=== PATIENT | female | born 1930 | race Caucasian/White ===

== ENCOUNTER 2019-10-10 20:03 | Inpatient (IN) | payer MEDICARE, BC ==
[~2019-10-10] VITALS: Ht 152.4 cm; Wt 35.5 kg
[~2019-10-10 20:03] MED LIST: ACET325S PO; AMLO2.5T5 PO; ASPI-630 PO; ASPI325T8 PO; CLOP75TA57 PO; CRESTOR20 MG PO; DIAZ2TAB3 PO; DOCU-109 PO; IBUP200T58 PO; ISOS30TA4 PO; LACT1TAB18 PO; MAG355OR12 PO; MULT-208 PO; NITR1OIN TD; TIOT18CA IH; [UNRECOGNIZED DRUG - CODE] PO; nitropaste
[2019-10-10 21:16] LABS: BILIRUBIN,URINE NEGATIVE (NEG); CLARITY,URINE CLEAR; COLOR,URINE YELLOW; NITRITE,URINE POSITIVE (NEG); PH,URINE 7.5 (<5.0-8.0); PROTEIN,URINE NEGATIVE (NEG-TRACE); UROBILINOGEN,URINE 0.2 mg/dL (0.2 mg/dL)
--- NOTE | 2019-10-10 21:25 | PHYS DOC ---
Past Medical History Past Medical History: Cancer, High Cholesterol, Hyperthyroid, MS Past Surgical History: Pacemaker Smoking Status: Current Every Day Smoker Alcohol Use: None Drug Use: None General Adult EDM: Chief Complaint: MECHANICAL FALL HPI: HPI: Patient is a 88 year old female who presents to the emergency department without chief complaints. Patient has a granddaughter that was present in the room who states the patient fell today at 2 AM. Patient then states that she did not fall at 2 AM today, that she is fell at 8:00 PM yesterday. Patient stat es that she gets up too fast becomes dizzy and falls and has done this at least 5 times over the past 2 weeks. Patient states that she hears somebody knocking on her house that she suspects are kids playing pranks on her. The granddaughter states that [place] and this could not possibly be happening. Patient denies any fever or chills, denies any vision changes. Patient denies any recent nasal congestion sore throat cough or shortness of breath. Patient denies any pain in her chest or swelling of her extremities. Patient denies any abdominal pain nausea, vomiting, diarrhea, or constipation. Patient denies any problems urinating, also denies any burning with urination or increased urination problems. Patient denies any pain in her back or pain in her joints. Patient denies skin rashes, however states that she suffered some skin tears from her fall yesterday at 8 PM. Patient denies any headaches, focal weaknesses or sensory changes. Patient denies any increased urination or increased thirst, any swelling of her glands, depressions or anxieties. Patient denies any homicidal or suicidal ideations. Patient denies exposure to the COVID-19 virus, denies concerns of having the COVID-19 virus and does not wish to be asked to today. Review of Systems: Review of Systems: Constitutional: Denies fever or chills. Denies exposure to the COVID-19 virus. Eyes: Denies change in visual acuity. HENT: Denies nasal congestion or sore throat. Respiratory: Denies cough or shortness of breath. Cardiovascular: Denies chest pain or edema. GI: Denies abdominal pain, nausea, vomiting, bloody stools or diarrhea. : Denies dysuria. Musculoskeletal: Denies back pain or joint pain. Integument: Denies rash. Complains of skin tear to right elbow and left upper arm near the elbow and scalp. Neurologic: Denies headache, focal weakness or sensory changes. Endocrine: Denies polyuria or polydipsia. Lymphatic: Denies swollen glands. Psychiatric: Denies depression or anxiety. Heart Score: HEART Score for Chest Pain: HEART Score for Chest Pain Response (Comments) Value History Slighlty/Non-Suspicious 0 ECG Normal 0 Age > 65 2 Risk Factors No Risk Factors 0 Troponin < Normal Limit 0 Total 2 Risk Factors: Risk Factors: DM, Current or recent (<one month) smoker, HTN, HLP, family history of CAD, obesity. Risk Scores: Score 0 - 3: 2.5% MACE over next 6 weeks - Discharge Home Score 4 - 6: 20.3% MACE over next 6 weeks - Admit for Clinical Observation Score 7 - 10: 72.7% MACE over next 6 weeks - Early Invasive Strategies Allergies: Allergies: Allergies Coded Allergies Type Severity Reaction Last Updated Verified acetaminophen Allergy Mild Nausea and Vomiting 06/20/14 Yes hydrocodone Allergy Mild Nausea and Vomiting 06/20/14 Yes Physical Exam: PE: Constitutional: Well developed, well nourished, no acute distress, non-toxic appearance. HENT: Normocephalic, atraumatic, bilateral external ears normal, oropharynx moist, no oral exudates, nose normal. Eyes: PERRLA, EOMI, conjunctiva normal, no discharge. Pupils 1 mm with brisk reaction to light stimuli. Neck: Normal range of motion, no tenderness, supple, no stridor. Cardiovascular:Heart rate regular rhythm, no murmur heart sounds S1-S2, no abnormalities noted per auscultation. Lungs & Thorax: Bilateral breath sounds clear to auscultation all lung acosta. Abdomen: Bowel sounds normal all 4 quadrants auscultation, soft, no tenderness, no masses, no pulsatile masses. Skin: Warm, dry, no erythema, no rash. Skin tears to the right elbow 2 cm x 2 cm L-shaped without bleeding, just above the left elbow there is a 10 cm skin tear without bleeding linear shaped, also next to this 10 cm skin tear is a 3 cm x 3 cm L-shaped skin tear without bleeding, there is a 4 cm linear skin tear to the scalp along the right parietal/frontal area without bleeding. Back: No tenderness, no CVA tenderness. Extremities: No tenderness, no cyanosis, no clubbing, ROM intact, no edema. Neurologic: Alert and oriented X 3, normal motor function, normal sensory function, no focal deficits noted. Psychologic: Affect normal, judgement normal, mood normal. EKG: EKG: EKG performed at 2115 by ED staff. Heart rate 75 normal sinus rhythm without ectopy interpreted by Dr. Lemos no STEMI noted no ACS concerns. Radiology/Procedures: Radiology/Procedures: PROCEDURE: CT HEAD WO CONTRAST Exam: CT head INDICATION: Syncopal episode TECHNIQUE: Sequential axial images through the head were obtained without the administration of IV contrast. Comparisons: None FINDINGS: No focal parenchymal lesion or hemorrhage is identified. There is no midline shift or sulcal effacement. Patchy hypodensity in the periventricular white matter. No acute vascular territory infarction is identified. Vo-white distinction is preserved. The ventricular system is within normal limits without compression hydrocephalus. The basal cisterns are well maintained. Extra cranial soft tissue scalp contusion overlying the right frontal region. The visualized portions of the paranasal sinuses and mastoid air cells are well-pneumatized. No acute fractures. IMPRESSION: 1. Extra cranial soft tissue scalp contusion overlying the right frontal region without underlying osseous or intracranial abnormality. 2. Small vessel ischemic change, technically age indeterminate without prior imaging. Exposure: One or more of the following in the visualized dose reduction techniques were utilized for this examination: 1. Automated exposure control 2. Adjustment of the MA and/or KV according to patient size Use of iterative of reconstructive technique Electronically signed by: Gardenia Guevara MD (10/10/2019 9:38 PM) [id number] DICTATED and SIGNED BY: GARDENIA GUEVARA MD DATE: 10/10/192137 Course & Med Decision Making: Course & Med Decision Making Pertinent Labs and Imaging studies reviewed. (See chart for details) 88-year-old female was brought to the emergency department by her daughter and her granddaughter because she fell at some time last night or possibly early this morning. There was conflict thing stories between what the patient told me and what the patient told the family. Patient did have a scalp abrasion that was dried with blood that measured 4 cm linear along the right parietal frontal scalp area, along with the skin tear L-shaped to the right elbow approximately 2 cm x 2 cm without bleeding also a skin tear above the left elbow measuring 10 cm linear next to this skin tear was an additional 3 cm x 3 cm L-shaped skin tear. These were cleansed and dressed by ED nursing staff. Patient is pupils were 1 mm, concerning for possible illicit/prescription drug use, the patient's drug urinalysis was negative. Laceration repair patient's head CT was non-concerning for intracranial head injury, patient's urine was infected. Reviewed findings with patient and patient family members, it was decided that patient was related to patient's syncopal episodes and acute confusion at home and acute cystitis that the patient should come into the hospital to be admitted and treated for a urinary tract infection along with a evaluation of her syncopal episode by her [facility] extension specialist Dr. Mcmullen. [facility] telemetry unit with consultation of cardiology, IV Cipro was started along with bridge orders for continue with Cipro over the next 3 days. Dragon Disclaimer: Dragon Disclaimer: This electronic medical record was generated, in whole or in part, using a voice recognition dictation system. Departure Departure Impression: Primary Impression: UTI (urinary tract infection) Qualified Codes: N30.00 - Acute cystitis without hematuria Additional Impressions: Syncope Qualified Codes: R55 - Syncope and collapse Confusion Disposition: ADMITTED INPATIENT Admitting Physician: JESSICA (Dr. Camejo) Condition: GUARDED Referrals: TAMIKO DAVIS MD (PCP) Justicifation of Admission Dx: Justifications for Admission: Justification of Admission Dx: Yes Comments: Acute simple cystitis, syncopal episodes, confusion JIMBO MYERS REFERENCE ARCHIVIST Oct 10, 2019 21:25
[2019-10-10 21:26] LABS: BARBITURATES NEG (NEG); BENZODIAZEPINES NEG (NEG); CANNABINOIDS NEG (NEG); COCAINE NEG (NEG); METHADONE NEG (NEG); OPIATES NEG (NEG); PHENCYCLIDINE NEG (NEG)
[2019-10-10 21:28] LABS: BACTERIA,URINE MANY /HPF (0-FEW); RBC,URINE RARE /HPF (0-2); SQUAMOUS EPITHELIAL CELL,UR OCC /LPF
[2019-10-10 21:31] LABS: AMPHETAMINE/METHAMPHETAMINE NEG (NEG)
--- NOTE | 2019-10-10 21:41 | RAD ---
Exam: CT head INDICATION: Syncopal episode TECHNIQUE: Sequential axial images through the head were obtained without the administration of IV contrast. Comparisons: None FINDINGS: No focal parenchymal lesion or hemorrhage is identified. There is no midline shift or sulcal effacement. Patchy hypodensity in the periventricular white matter. No acute vascular territory infarction is identified. Vo-white distinction is preserved. The ventricular system is within normal limits without compression hydrocephalus. The basal cisterns are well maintained. Extra cranial soft tissue scalp contusion overlying the right frontal region. The visualized portions of the paranasal sinuses and mastoid air cells are well-pneumatized. No acute fractures. IMPRESSION: 1. Extra cranial soft tissue scalp contusion overlying the right frontal region without underlying osseous or intracranial abnormality. 2. Small vessel ischemic change, technically age indeterminate without prior imaging. Exposure: One or more of the following in the visualized dose reduction techniques were utilized for this examination: 1. Automated exposure control 2. Adjustment of the MA and/or KV according to patient size Use of iterative of reconstructive technique Electronically signed by: Gardenia George MD (10/10/2019 9:38 PM) [id number]
[2019-10-10 22:04] LABS: BASO % 0 % (0-3); EOS # 0.1 x10^3/uL (0.0-0.7); EOS % 2 % (0-3); HEMATOCRIT 39.2 % (36.0-47.0); HEMOGLOBIN 13.1 g/dL (12.0-15.5); LYMPH # 1.4 x10^3/uL (1.0-4.8); LYMPH % 22 % (24-48); MEAN CORPUSCULAR HEMOGLOBIN 30 pg (25-35); MEAN CORPUSCULAR HGB CONC 33 g/dL (31-37); MEAN CORPUSCULAR VOLUME 90 fL (79-100); MONO # 0.8 x10^3/uL (0.0-1.1); MONO % 13 % (0-9); NEUT # 4.1 x10^3/uL (1.8-7.7); NEUT % 63 % (31-73); PLATELET COUNT 237 x10^3/uL (140-400); RED BLOOD COUNT 4.36 x10^6/uL (3.50-5.40); RED CELL DISTRIBUTION WIDTH 16.1 % (11.5-14.5); WHITE BLOOD COUNT 6.5 x10^3/uL (4.0-11.0)
[2019-10-10 22:06] LABS: CALCIUM 9.1 mg/dL (8.5-10.1); CREATININE 1.1 mg/dL (0.6-1.0); GFR 46.9; POTASSIUM 4.1 mmol/L (3.5-5.1)
[2019-10-10 22:12] LABS: ALBUMIN 3.9 g/dL (3.4-5.0); TOTAL BILIRUBIN 0.4 mg/dL (0.2-1.0); TOTAL PROTEIN 7.7 g/dL (6.4-8.2)
[2019-10-10] MEDS ORDERED: ONDANSETRON PF 4 MG/2 ML VIAL. IV PRN (23:15)
[2019-10-10] MEDS ORDERED: CIPROFLOXACIN 200MG PREMIX 100 ML IV ONE (23:15)
[2019-10-11] VITALS (9 sets, daily range): BP systolic 72–167; BP diastolic 46–89
[2019-10-11] MEDS ORDERED: BACITRACIN TOPICAL OINT PACKET. TP ONE (00:15)
--- NOTE | 2019-10-11 02:45 | NUR ---
Pt arrived to floor via WC. Ambulated a short distance to bed with a slightly unsteady gait. ADB done - pt impatient to go to sleep. Wounds noted to bilat arms and scalp, pt requested that pictures wait to be taken until am. RN explained importance of getting pictures and pt stated would get in the morning when woke up. Will continue to monitor pt status.
--- NOTE | 2019-10-11 07:55 | EKG ---
[facility] [address] [place] [address] Test Date: 2019-10-10 Test Time: 21:15:39 Pat Name: HANNAH MÉNDEZ Department: Room: Gender: F Associate Doctor: : 1930 Requested By: JIMBO MYERS Order Number: [id number] Reading MD: Measurements Intervals [place] Rate: 75 P: 7 WY: 246 QRS: -46 QRSD: 80 T: 21 QT: 396 QTc: 445 Interpretive Statements SINUS RHYTHM PROLONGED WY INTERVAL ABNORMAL LEFT AXIS DEVIATION LEFT ANTERIOR FASCICULAR BLOCK T ABNORMALITY IN ANTERIOR LEADS ABNORMAL ECG RI6.01 No previous ECG available for comparison
[2019-10-11] MEDS ORDERED: CIPROFLOXACIN HCL 250 MG TABLET. PO SCH (09:00)
--- NOTE | 2019-10-11 10:13 | PDOC1 ---
History and Physical Date of Admission Date of Admission DATE: 10/11/19 TIME: 10:13 Identification/Chief Complaint Chief Complaint SEEN IN ER WITH FALLS , presented to the emergency department after falls Patient has a granddaughter that was present in the room who states the patient fell 10/08 at 2 AM. Patient then states she fell at 8:00 PM 10/08 Patient states that she gets up too fast becomes dizzy and falls and has done this at least 5 times over the past 2 weeks. Patient states that she hears somebody knocking on her house that she suspects are kids playing pranks on her. Patient denies any fever or chills, denies any vision changes. Patient denies any recent nasal congestion sore throat cough or shortness of breath. Patient denies any pain in her chest or swelling of her extremities. Patient denies any abdominal pain nausea, vomiting, diarrhea, or constipation. Patient denies any problems urinating, also denies any burning with urination or increased urination problems. Patient denies any pain in her back or pain in her joints. Patient denies skin rashes, however states that she suffered some skin tears from her fall yesterday at 8 PM. Patient denies any headaches, focal weaknesses or sensory changes. Patient denies any increased urination or increased thirst, Past Medical History Past Medical History Past Medical History Past Medical History Past Medical History: Cancer, High Cholesterol, Hyperthyroid, CT Past Surgical History: Pacemaker Smoking Status: Current Every Day Smoker Alcohol Use: None Drug Use: None Successful complex PCI/drug eluting stents placement to the left main coronary artery and also the left anterior descending artery FHX COPD Cardiovascular: CAD, HTN Psych: No pertinent hx Musculoskeletal: Osteoarthritis Family History Family History: High Cholestrol, Hypertension Social History Smoke: 1 pack per day ALCOHOL: none Drugs: None Current Problem List Problem List Problems Medical Problems: (1) Confusion Status: Acute Current Medications Current Medications Current Medications Ciprofloxacin/ Dextrose 100 ml @ 100 mls/hr 1X ONCE IV Last administered on 10/10/19at 23:46; Start 10/10/19 at 23:15; Stop 10/11/19 at 00:14; Status DC Ondansetron HCl (Zofran) 4 mg PRN Q8HRS PRN IV NAUSEA/VOMITING; Start 10/10/19 at 23:15; Stop 10/11/19 at 23:14 Ciprofloxacin (Cipro) 250 mg BID PO Last administered on 10/11/19at 09:16; Start 10/11/19 at 09:00; Stop 10/14/19 at 08:59 Bacitracin (Bacitracin Zinc Oint Pkt) 1 pkt 1X ONCE TP Last administered on 10/11/19at 00:32; Start 10/11/19 at 00:15; Stop 10/11/19 at 00:16; Status DC Active Scripts Active Aspirin 325 Mg Tablet 1 Tab PO DAILY Plavix (Clopidogrel Bisulfate) 75 Mg Tablet 1 Tab PO DAILY Reported Nitro-Bid (Nitroglycerin) 1 Gm Oint...g. 1 Gm TD Q8HRS Crestor (Rosuvastatin Calcium) 20 Mg Tablet 20 Mg PO HS Amlodipine Besylate 2.5 Mg Tablet 1 Tab PO DAILY Maalox Maximum Strength Susp (Mag Hydrox/Al Hydrox/Simeth) 355 Ml Oral.susp 355 Ml PO Colace (Docusate Sodium) 100 Mg Capsule 100 Mg PO PRN BID PRN Mineral Oil 473 Ml Oil 473 Ml PO Acetaminophen 325 Mg/10.15 Ml Solution 325 Mg PO PRN Q6HRS PRN Multi-Day Vitamins (Multivitamin) 1 Each Tablet 1 Tab PO DAILY Spiriva (Tiotropium Harbert) 18 Mcg Cap.w.dev 2 Inh IH DAILY Diazepam 2 Mg Tablet 2 Mg PO BID PRN Allergies Allergies: Coded Allergies: No Known Drug Allergies (Unverified , 10/11/19) ROS Review of System Constitutional: Denies fever or chills. Denies exposure to the COVID-19 virus. Eyes: Denies change in visual acuity. HENT: Denies nasal congestion or sore throat. Respiratory: Denies cough or shortness of breath. Cardiovascular: Denies chest pain or edema. GI: Denies abdominal pain, nausea, vomiting, bloody stools or diarrhea. : Denies dysuria. Musculoskeletal: Denies back pain or joint pain. Integument: notes skin tear to right elbow and left upper arm near the elbow and scalp. Neurologic: Denies headache, focal weakness or sensory changes. Endocrine: Denies polyuria or polydipsia. Lymphatic: Denies swollen glands. Psychiatric: Denies depression or anxiety. ARON loc 14 pt ros otherwise neg ALLERGY AND IMMUNOLOGY: No: Hives, Insect Bite Sensitivity, Itchy/Watery Eyes, Nasal Congestion, Post Nasal Drip, Seasonal Allergies, Other Musculoskeletal: Yes Gait Disturbance, Yes Joint Stiffness Neurological: Yes Confusion, Yes Gait Disturbance Physical Exam Physical Exam Constitutional: Well developed, well nourished, no acute distress, non-toxic appearance. HENT: Normocephalic, atraumatic, bilateral external ears normal, oropharynx moist, no oral exudates, nose normal. Eyes: PERRLA, EOMI, conjunctiva normal, no discharge. Pupils 1 mm with brisk reaction to light stimuli. Neck: Normal range of motion, no tenderness, supple, no stridor. Cardiovascular:Heart rate regular rhythm, no murmur heart sounds S1-S2, no abnormalities noted per auscultation. Lungs & Thorax: Bilateral breath sounds clear to auscultation all lung acosta. Abdomen: Bowel sounds normal all 4 quadrants auscultation, soft, no tenderness, no masses, no pulsatile masses. Skin: Warm, dry, no erythema, no rash. Skin tears to the right elbow 2 cm x 2 cm L-shaped without bleeding, just above the left elbow there is a 10 cm skin tear without bleeding linear shaped, also next to this 10 cm skin tear is a 3 cm x 3 cm L-shaped skin tear without bleeding, there is a 4 cm linear skin tear to the scalp along the right parietal/frontal area without bleeding. Back: No tenderness, no CVA tenderness. Extremities: No tenderness, no cyanosis, no clubbing, ROM intact, no edema. Neurologic: Alert and oriented X 3, normal motor function, normal sensory f unction, no focal deficits noted. Psychologic: Affect normal, judgment normal, mood normal. General: Alert, Oriented X3, Cooperative, No acute distress HEENT: PERRLA, Mucous membr. moist/pink Lungs: Normal air movement Breasts: Not examined Abdomen: Normal bowel sounds, Soft Rectal Exam: not examined PELVIC: Examination not indicated Extremities: No cyanosis Neuro: Normal speech, Sensation intact, Cranial nerves 3-12 NL Psych/Mental Status: Mental status NL, Mood NL Vitals Vitals Vital Signs Date Time Temp Pulse Resp B/P (MAP) Pulse Ox O2 Delivery O2 Flow Rate FiO2 10/11/19 07:00 98.0 65 18 128/55 (79) 98 Room Air 98.0 Labs Labs Laboratory Tests Test 10/10/19 20:30 10/10/19 21:57 Urine Collection Type Void Urine Color Yellow Urine Clarity Clear Urine pH 7.5 (<5.0-8.0) Urine Specific [place] 1.015 (1.000-1.030) Urine Protein Negative mg/dL (NEG-TRACE) Urine Glucose (UA) Negative mg/dL (NEG) Urine Ketones (Stick) Negative mg/dL (NEG) Urine Blood Negative (NEG) Urine Nitrite Positive (NEG) Urine Bilirubin Negative (NEG) Urine Urobilinogen Dipstick 0.2 mg/dL (0.2 mg/dL) Urine Leukocyte Esterase Trace (NEG) Urine RBC Rare /HPF (0-2) Urine WBC 5-10 /HPF (0-4) Urine Squamous Epithelial Cells Occ /LPF Urine Bacteria Many /HPF (0-FEW) Urine Opiates Screen Neg (NEG) Urine Methadone Screen Neg (NEG) Urine Barbiturates Neg (NEG) Urine Phencyclidine Screen Neg (NEG) Urine Amphetamine/Methamphetamine Neg (NEG) Urine Benzodiazepines Screen Neg (NEG) Urine Cocaine Screen Neg (NEG) Urine Cannabinoids Screen Neg (NEG) Urine Ethyl Alcohol Neg (NEG) White Blood Count 6.5 x10^3/uL (4.0-11.0) Red Blood Count 4.36 x10^6/uL (3.50-5.40) Hemoglobin 13.1 g/dL (12.0-15.5) Hematocrit 39.2 % (36.0-47.0) Mean Corpuscular Volume 90 fL (79-100) Mean Corpuscular Hemoglobin 30 pg (25-35) Mean Corpuscular Hemoglobin Concent 33 g/dL (31-37) Red Cell Distribution Width 16.1 % (11.5-14.5) Platelet Count 237 x10^3/uL (140-400) Neutrophils (%) (Auto) 63 % (31-73) Lymphocytes (%) (Auto) 22 % (24-48) Monocytes (%) (Auto) 13 % (0-9) Eosinophils (%) (Auto) 2 % (0-3) Basophils (%) (Auto) 0 % (0-3) Neutrophils # (Auto) 4.1 x10^3/uL (1.8-7.7) Lymphocytes # (Auto) 1.4 x10^3/uL (1.0-4.8) Monocytes # (Auto) 0.8 x10^3/uL (0.0-1.1) Eosinophils # (Auto) 0.1 x10^3/uL (0.0-0.7) Basophils # (Auto) 0.0 x10^3/uL (0.0-0.2) Sodium Level 141 mmol/L (136-145) Potassium Level 4.1 mmol/L (3.5-5.1) Chloride Level 103 mmol/L (98-107) Carbon Dioxide Level 31 mmol/L (21-32) Anion Gap 7 (6-14) Blood Urea Nitrogen 19 mg/dL (7-20) Creatinine 1.1 mg/dL (0.6-1.0) Estimated GFR (Cockcroft-Gault) 46.9 BUN/Creatinine Ratio 17 (6-20) Glucose Level 100 mg/dL (70-99) Calcium Level 9.1 mg/dL (8.5-10.1) Total Bilirubin 0.4 mg/dL (0.2-1.0) Aspartate Amino Transf (AST/SGOT) 23 U/L (15-37) Alanine Aminotransferase (ALT/SGPT) 17 U/L (14-59) Alkaline Phosphatase 72 U/L (46-116) Troponin I Quantitative < 0.017 ng/mL (0.000-0.055) Total Protein 7.7 g/dL (6.4-8.2) Albumin 3.9 g/dL (3.4-5.0) Albumin/Globulin Ratio 1.0 (1.0-1.7) Laboratory Tests Test 10/10/19 20:30 10/10/19 21:57 Urine Collection Type Void Urine Color Yellow Urine Clarity Clear Urine pH 7.5 (<5.0-8.0) Urine Specific [place] 1.015 (1.000-1.030) Urine Protein Negative mg/dL (NEG-TRACE) Urine Glucose (UA) Negative mg/dL (NEG) Urine Ketones (Stick) Negative mg/dL (NEG) Urine Blood Negative (NEG) Urine Nitrite Positive (NEG) Urine Bilirubin Negative (NEG) Urine Urobilinogen Dipstick 0.2 mg/dL (0.2 mg/dL) Urine Leukocyte Esterase Trace (NEG) Urine RBC Rare /HPF (0-2) Urine WBC 5-10 /HPF (0-4) Urine Squamous Epithelial Cells Occ /LPF Urine Bacteria Many /HPF (0-FEW) Urine Opiates Screen Neg (NEG) Urine Methadone Screen Neg (NEG) Urine Barbiturates Neg (NEG) Urine Phencyclidine Screen Neg (NEG) Urine Amphetamine/Methamphetamine Neg (NEG) Urine Benzodiazepines Screen Neg (NEG) Urine Cocaine Screen Neg (NEG) Urine Cannabinoids Screen Neg (NEG) Urine Ethyl Alcohol Neg (NEG) White Blood Count 6.5 x10^3/uL (4.0-11.0) Red Blood Count 4.36 x10^6/uL (3.50-5.40) Hemoglobin 13.1 g/dL (12.0-15.5) Hematocrit 39.2 % (36.0-47.0) Mean Corpuscular Volume 90 fL (79-100) Mean Corpuscular Hemoglobin 30 pg (25-35) Mean Corpuscular Hemoglobin Concent 33 g/dL (31-37) Red Cell Distribution Width 16.1 % (11.5-14.5) Platelet Count 237 x10^3/uL (140-400) Neutrophils (%) (Auto) 63 % (31-73) Lymphocytes (%) (Auto) 22 % (24-48) Monocytes (%) (Auto) 13 % (0-9) Eosinophils (%) (Auto) 2 % (0-3) Basophils (%) (Auto) 0 % (0-3) Neutrophils # (Auto) 4.1 x10^3/uL (1.8-7.7) Lymphocytes # (Auto) 1.4 x10^3/uL (1.0-4.8) Monocytes # (Auto) 0.8 x10^3/uL (0.0-1.1) Eosinophils # (Auto) 0.1 x10^3/uL (0.0-0.7) Basophils # (Auto) 0.0 x10^3/uL (0.0-0.2) Sodium Level 141 mmol/L (136-145) Potassium Level 4.1 mmol/L (3.5-5.1) Chloride Level 103 mmol/L (98-107) Carbon Dioxide Level 31 mmol/L (21-32) Anion Gap 7 (6-14) Blood Urea Nitrogen 19 mg/dL (7-20) Creatinine 1.1 mg/dL (0.6-1.0) Estimated GFR (Cockcroft-Gault) 46.9 BUN/Creatinine Ratio 17 (6-20) Glucose Level 100 mg/dL (70-99) Calcium Level 9.1 mg/dL (8.5-10.1) Total Bilirubin 0.4 mg/dL (0.2-1.0) Aspartate Amino Transf (AST/SGOT) 23 U/L (15-37) Alanine Aminotransferase (ALT/SGPT) 17 U/L (14-59) Alkaline Phosphatase 72 U/L (46-116) Troponin I Quantitative < 0.017 ng/mL (0.000-0.055) Total Protein 7.7 g/dL (6.4-8.2) Albumin 3.9 g/dL (3.4-5.0) Albumin/Globulin Ratio 1.0 (1.0-1.7) Images Images Exam: CT head INDICATION: Syncopal episode TECHNIQUE: Sequential axial images through the head were obtained without the administration of IV contrast. Comparisons: None FINDINGS: No focal parenchymal lesion or hemorrhage is identified. There is no midline shift or sulcal effacement. Patchy hypodensity in the periventricular white matter. No acute vascular territory infarction is identified. Vo-white distinction is preserved. The ventricular system is within normal limits without compression hydrocephalus. The basal cisterns are well maintained. Extra cranial soft tissue scalp contusion overlying the right frontal region. The visualized portions of the paranasal sinuses and mastoid air cells are well-pneumatized. No acute fractures. IMPRESSION: 1. Extra cranial soft tissue scalp contusion overlying the right frontal region without underlying osseous or intracranial abnormality. 2. Small vessel ischemic change, technically age indeterminate without prior imaging. Exposure: One or more of the following in the visualized dose reduction techniques were utilized for this examination: 1. Automated exposure control 2. Adjustment of the MA and/or KV according to patient size Use of iterative of reconstructive technique Electronically signed by: Gardenia George MD (10/10/2019 9:38 PM) [id number] VTE Prophylaxis Ordered VTE Prophylaxis Devices: No VTE Pharmacological Prophylaxi: Yes Assessment/Plan Assessment/Plan Impression: UTI (urinary tract infection) falls Syncope? 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
[2019-10-11] MEDS ORDERED: DOCUSATE SODIUM 100 MG CAPSULE. PO PRN ×2 (10:15→11:30)
[2019-10-11] MEDS ORDERED: MAG HYDROX/ALUMINUM HYD/SIMETH 30 ML ORAL.SUSP PO PRN ×2 (10:15→11:30)
[2019-10-11] MEDS ORDERED: diazePAM 2 MG TABLET PO PRN (10:15)
[2019-10-11] MEDS ORDERED: CLOPIDOGREL BISULFATE 75 MG TABLET PO SCH (10:15)
[2019-10-11] MEDS ORDERED: ACETAMINOPHEN 325 MG TABLET. PO PRN ×2 (10:45→11:30)
--- NOTE | 2019-10-11 10:49 | NUR ---
Clarified with the patient if she has medication allergy. She stated that she does not have allergy to acetaminophen or hydrocodone, she claims that she was given 1 time of a higher dose that it made her felt nauseous. Patient denies having hives or difficulty breathing after taking any meds.
[2019-10-11] MEDS ORDERED: ASPIRIN 325 MG TABLET PO SCH (11:00)
[2019-10-11] MEDS ORDERED: amLODIPine BESYLATE 5 MG TABLET PO SCH (11:00)
--- NOTE | 2019-10-11 11:02 | NUR ---
SW following. Discussed with RN, pt from home alone, room air, regular diet. PT/OT ordered, wound care consult. SW will continue to follow.
--- NOTE | 2019-10-11 11:15 | PDOC ---
RAMIRO HUI EDNA 10/11/19 1115: CARDIO Progress Notes Date and Time Date of Service 10/11/19 Time of Evaluation 1115 Vitals Vitals Vital Signs Date Time Temp Pulse Resp B/P (MAP) Pulse Ox O2 Delivery O2 Flow Rate FiO2 10/11/19 08:00 Room Air 10/11/19 07:00 98.0 65 18 128/55 (79) 98 98.0 Weight Weight [ ] Input and Output Intake and Output Intake and Output 10/11/19 07:00 Intake Total 100 ml Balance 100 ml IV Total 100 ml # Voids 1 Laboratory Labs Laboratory Tests Test 10/10/19 20:30 10/10/19 21:57 Urine Collection Type Void Urine Color Yellow Urine Clarity Clear Urine pH 7.5 (<5.0-8.0) Urine Specific [place] 1.015 (1.000-1.030) Urine Protein Negative mg/dL (NEG-TRACE) Urine Glucose (UA) Negative mg/dL (NEG) Urine Ketones (Stick) Negative mg/dL (NEG) Urine Blood Negative (NEG) Urine Nitrite Positive (NEG) Urine Bilirubin Negative (NEG) Urine Urobilinogen Dipstick 0.2 mg/dL (0.2 mg/dL) Urine Leukocyte Esterase Trace (NEG) Urine RBC Rare /HPF (0-2) Urine WBC 5-10 /HPF (0-4) Urine Squamous Epithelial Cells Occ /LPF Urine Bacteria Many /HPF (0-FEW) Urine Opiates Screen Neg (NEG) Urine Methadone Screen Neg (NEG) Urine Barbiturates Neg (NEG) Urine Phencyclidine Screen Neg (NEG) Urine Amphetamine/Methamphetamine Neg (NEG) Urine Benzodiazepines Screen Neg (NEG) Urine Cocaine Screen Neg (NEG) Urine Cannabinoids Screen Neg (NEG) Urine Ethyl Alcohol Neg (NEG) White Blood Count 6.5 x10^3/uL (4.0-11.0) Red Blood Count 4.36 x10^6/uL (3.50-5.40) Hemoglobin 13.1 g/dL (12.0-15.5) Hematocrit 39.2 % (36.0-47.0) Mean Corpuscular Volume 90 fL (79-100) Mean Corpuscular Hemoglobin 30 pg (25-35) Mean Corpuscular Hemoglobin Concent 33 g/dL (31-37) Red Cell Distribution Width 16.1 % (11.5-14.5) Platelet Count 237 x10^3/uL (140-400) Neutrophils (%) (Auto) 63 % (31-73) Lymphocytes (%) (Auto) 22 % (24-48) Monocytes (%) (Auto) 13 % (0-9) Eosinophils (%) (Auto) 2 % (0-3) Basophils (%) (Auto) 0 % (0-3) Neutrophils # (Auto) 4.1 x10^3/uL (1.8-7.7) Lymphocytes # (Auto) 1.4 x10^3/uL (1.0-4.8) Monocytes # (Auto) 0.8 x10^3/uL (0.0-1.1) Eosinophils # (Auto) 0.1 x10^3/uL (0.0-0.7) Basophils # (Auto) 0.0 x10^3/uL (0.0-0.2) Sodium Level 141 mmol/L (136-145) Potassium Level 4.1 mmol/L (3.5-5.1) Chloride Level 103 mmol/L (98-107) Carbon Dioxide Level 31 mmol/L (21-32) Anion Gap 7 (6-14) Blood Urea Nitrogen 19 mg/dL (7-20) Creatinine 1.1 mg/dL (0.6-1.0) Estimated GFR (Cockcroft-Gault) 46.9 BUN/Creatinine Ratio 17 (6-20) Glucose Level 100 mg/dL (70-99) Calcium Level 9.1 mg/dL (8.5-10.1) Total Bilirubin 0.4 mg/dL (0.2-1.0) Aspartate Amino Transf (AST/SGOT) 23 U/L (15-37) Alanine Aminotransferase (ALT/SGPT) 17 U/L (14-59) Alkaline Phosphatase 72 U/L (46-116) Troponin I Quantitative < 0.017 ng/mL (0.000-0.055) Total Protein 7.7 g/dL (6.4-8.2) Albumin 3.9 g/dL (3.4-5.0) Albumin/Globulin Ratio 1.0 (1.0-1.7) Physical Exam HEENT: Neck Supple W Full Motion Chest: Symmetric LUNGS: Clear to Auscultation Heart: S1S2, RRR Abdomen: Soft N/T Extremities: No Edema Neurology: alert, oriented, follow commands Assessment Assessment Please see office noted in physical chart for further details. Was seen in clinic by Dr. Mcmullen 10/07/19. Consult reason: syncope Referring physician: Dr. Arce HPI: This is an 88 yo female who presented secondary to fall. Reports she has been getting dizzy recently when she gets up quickly and falls. Patient reports someone was knocking on her door last night around 8 pm. Went to the door to see who it was and reports falling and passing out. Cannot recall if she felt dizzy prior to fall or if she tripped and fell. Daughter reports some confusion recently. UA notable for UTI. No chest pain, palpitations, diaphoresis, or SOA. Assessment 1. Syncope; details unclear as she cannot recall events leading up to LOC. ? orthostatic hypotension contributing. Daughter reporting dizziness upon standing recently. Drinks multiple cups of caffeinated coffee daily. Very little water intake, 2. CAD; s/p PCI/CELENA to LMCA, LAD, and LCx 3. Hypertension 4. Hyperlipidemia 5. SSS s/p PPM (Sensorflare PCtronic); Device check 10/06 with normal function. No significant arrhythmias. Device recheck today and no arrhythmias noted. Normal device function 6. UTI Recommendations Orthos; Will give fluid bolus if orthostasis noted Discussed increased water intake and limiting coffee intake Daughter requesting outpatient echo and LE duplex to be conducted now while she is here Ongoing antibiotic therapy as per IM Outpatient MPI as arranged Lost Charge Card Clerk consult; daughter wanting walker for home us and concerned about her safety at home alone PT/OT Supportive care Justicifation of Admission Dx: Justifications for Admission: Justification of Admission Dx: Yes SAMIA MCMULLEN MD 10/11/19 1734: CARDIO Progress Notes Assessment Assessment Patient seen and examined. Agree with HEDIS COORDINATOR's assessment and plan. Syncope probably secondary to hypovolemia. Orthostatics positive with significant 40 mmHg drop in SBP. We will try 500 cc of normal saline bolus. Continue current treatment for UTI per IM. CAD status clinically stable. Recent pacemaker check showed normal function. Thank you for your consultation. RAMIRO HUI APRN Oct 11, 2019 11:15 SAMIA MCMULLEN MD Oct 11, 2019 17:34
[2019-10-11] MEDS ORDERED: 0.9 % SODIUM CHLORIDE 10 ML DISP.SYRIN. IV PRN (11:30)
[2019-10-11] MEDS ORDERED: ONDANSETRON PF 4 MG/2 ML VIAL. IV PRN (11:30)
[2019-10-11] MEDS ORDERED: SODIUM PHOSPHATES 19/7GM 133 ML ENEMA. PR PRN (11:30)
[2019-10-11] MEDS ORDERED: ASPI-886 PO (11:44)
[2019-10-11] MEDS ORDERED: IPRATRPIUM/ALBUTEROL 0.5/2.5MG 3 ML NEBU. NEB SCH (12:00)
[2019-10-11] MEDS: ASPIRIN ENTERIC COATED 81 MG TABLET.DR. PO SCH (12:21)
[2019-10-11] MEDS: MULTIVITAMIN with MINERAL TABLET. PO SCH (12:21)
[2019-10-11] MEDS: ENOXAPARIN 30 MG/0.3 ML SYRINGE. SQ SCH (12:22)
[2019-10-11] MEDS: IPRATRPIUM/ALBUTEROL 0.5/2.5MG 3 ML NEBU. NEB SCH ×3 (12:29→20:13)
--- NOTE | 2019-10-11 13:45 | RAD ---
Carotid artery Doppler History: , , Reason: CAROTID STENOSIS / Spl. Instructions: / History: , Technique: Realtime grayscale B-mode 2D sonographic images of the subclavian, vertebral and carotid arteries were performed with color flow, and spectral waveform analysis Doppler imaging. Comparison: No prior studies are available Stenosis calculations are derived from the elevated velocity criteria which are known to correlate with NASCET methodology. Findings: Moderate bilateral soft and calcific plaque is seen in the carotid arteries most prominently in both carotid bulbs. Right vertebral: antegrade Left vertebral: Not visualized Right subclavian: Biphasic Left subclavian: Biphasic Right Left Common Carotid Artery PSV 78 cm/second 97 cm/second Internal Carotid Artery PSV 105 cm/second 161 cm/second Internal Carotid Artery EDV 14 cm/second 13 cm/second External Carotid Artery PSV 160 cm/second 319 cm/second ICA/CCA ratio 1.3 1.66 Impression: Advanced atherosclerotic disease in the carotid bulbs bilaterally is again noted. Although hemodynamically significant stenosis greater than 50 percent is not detected in either internal carotid artery. Once again estimated at greater than 70 percent diameter narrowing. In the left external carotid artery Left vertebral artery is not visualized. There are waveform changes suspicious for proximal left subclavian artery stenosis which may involve occlusion of the left vertebral artery. CT angiography of the neck can be performed for further clarification. Electronically signed by: Vamshi Zurita MD (10/11/2019 1:42 PM) [id number]
[2019-10-11] MEDS ORDERED: NITROGLYCERIN OINT 1 GM PACKET. TD SCH (14:00)
--- NOTE | 2019-10-11 14:35 | NUR ---
Pacemaker for interrogation. This nurse used the medtronic device but did not transmit results. Called medtronic at 1433, awaiting callback.
--- NOTE | 2019-10-11 15:18 | RAD ---
MR#: [id number] Date of Study: 10/11/2019 Ordering Physician: RAMIRO HUI, Referring Physician: RAMIRO HUI, Tech: Smith Perkins, YOLI, RDMS, RVT, RDCS, RTR APPROVED REPORT Patient Location: IN-PATIENT Indications PAD VELOCITY AND DOPPLER WAVEFORM ANALYSIS RIGHT cm/secWaveformSeverity LEFT cm/secWaveform Severity dCFA 144.0MonophasicdCFA 215.0Biphasic Prof Fem Art. 67.0BiphasicProf Fem Art. 94.0Biphasic Fem Art Prox. 126.0BiphasicFem Art Prox. 119.0Biphasic Fem Art Mid. 130.0BiphasicFem Art Mid. 130.0Biphasic Fem Art Dist. 111.0BiphasicFem Art Dist. 119.0Biphasic Pop Art(Fossa) 72.0BiphasicPop Art([place]) 128.0Biphasic BRASS CHASER Prox. 34.0BiphasicPTA Prox. 86.0Biphasic BRASS CHASER Dist. 53.0BiphasicPTA Dist. 68.0Biphasic Per Art Mid. 65.0BiphasicPer Art Mid. ROCIO Prox. 57.0BiphasicATA Prox. 32.0Monophasic DPA 78BiphasicDPA 133Biphasic Findings Grayscale images of the bilateral lower extremity arterial vessels demonstrates mild to moderate diff use atherosclerosis. On the right side no significant stenosis is identified with three-vessel runoff below the knee. On the left side the peroneal artery is not visualized and the anterior tibial artery has monophasic wav eforms but otherwise no significant obstruction noted. Mildly elevated velocities in the left common femoral artery and a biphasic wave pattern. Critical Notification Critical Value: No <Conclusion> 1. No critical stenosis. Signed by : Brenton Whipple, Electronically Approved : 10/11/2019 15:18:27
--- NOTE | 2019-10-11 15:31 | RAD ---
EXAM: CHEST 1 VIEW History: Syncope COMPARISON: 06/02/2014 TECHNIQUE: Single portable radiograph of the chest FINDINGS: Mild cardiomegaly. Left-sided cardiac pacer is identified. Mild bibasilar lung airspace opacity likely atelectasis or infiltrates. Trace left pleural effusion. Mild prominent bilateral interstitial lung markings. IMPRESSION: 1. Mild congestive changes with bibasilar lung airspace opacities likely atelectasis or infiltrates and left trace pleural effusion. Electronically signed by: Morgan Vargas MD (10/11/2019 3:28 PM) [id number]
--- NOTE | 2019-10-11 15:45 | NUR ---
Wound Care Wound Type/Assessment: patient seen per wound care consult. see wound assessment. patient has skin tears to bilateral arms. patient has steri-strips over the skin tears. patient has a laceration to the head that the patient stated is glued Treatment Recommendations/Plan: Recommendations of Cleansing the wounds then apply multiple layers with Xeroform with a foam dressing over, change every 6-7 days. patient assessed and no other wounds noted at this time. Wound Care will continue to f/u for changes.
[2019-10-11] MEDS ORDERED: IV NORMAL SALINE 500ML BAG 500 ML IV ONE ×2 (16:45→17:45)
[2019-10-11] MEDS: ATORVASTATIN CALCIUM 40 MG TABLET. PO SCH (21:00)
[2019-10-11] MEDS ORDERED: ALBUTEROL SULFATE 2.5 MG/3 ML NEBU. NEB PRN (21:15)
[2019-10-11] MEDS: LACTOBACILLUS RHAMNOSUS GG 1 CAPSULE. PO SCH (21:32)
--- NOTE | 2019-10-11 21:33 | NUR ---
Patient refused to take Atorvastatin states, "It gives me leg cramps and my regular Doctor is aware of it!"
[2019-10-12] VITALS (7 sets, daily range): BP systolic 92–139; BP diastolic 42–74
[2019-10-12] MEDS: guaiFENesin ORAL 200 MG/10 ML LIQUID. PO PRN ×2 (01:36→08:07)
[2019-10-12] MEDS: ASPIRIN ENTERIC COATED 81 MG TABLET.DR. PO SCH (08:06)
[2019-10-12] MEDS: MULTIVITAMIN with MINERAL TABLET. PO SCH (08:07)
[2019-10-12] MEDS: LACTOBACILLUS RHAMNOSUS GG 1 CAPSULE. PO SCH ×2 (08:07→22:36)
[2019-10-12] MEDS: CIPROFLOXACIN HCL 250 MG TABLET. PO SCH (08:08)
--- NOTE | 2019-10-12 10:48 | PDOC ---
PROGRESS NOTES Date of Service: DATE: 10/12/19 TIME: 10:47 Chief Complaint Chief Complaint VTE Prophylaxis Ordered VTE Prophylaxis Devices: No VTE Pharmacological Prophylaxi: Yes IMPRESSION Assessment/Plan Impression: UTI (urinary tract infection) falls Syncope? pt denies LOC Syncope probably secondary to hypovolemia. Orthostatics positive with significant 40 mmHg drop in SBP. try 500 cc of normal saline bolus. CAD status clinically stable. Recent pacemaker check showed normal function. 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 PHYSICIAN: TAMIKO DAVIS MD REASON: CAD PROCEDURE: CELENA LM APPROVED REPORT Procedure(s) performed: 1. Successful insertionl of Impella 2.5 percutaneous external heart assist device (CPT 95311, ICD 37.68) for hemodynamic support with removal at the end of procedure 2. Successful complex PCI/drug eluting stents placement to the left main coronary artery and also the left anterior descending artery INDICATION The indication(s) include : 83-year-old female who presented with acute non-ST elevation myocardial infarction was found to have three-vessel coronary artery disease including ostial left main coronary artery stenosis and acute systolic heart failure. She was deemed a poor candidate for coronary artery bypass surgery. After weighing risks and benefits, she agreed to undergo high risk percutaneous intervention the left main coronary artery and left anterior descending artery with hemodynamic support using Impella external heart assist device., . PROCEDURE NARRATIVE After explaining the risks, benefits and alternative options, informed consent was obtained from patient. Patient was brought to the cardiac Anatomical Embalmer and both her groins were prepped and draped in the usual fashion. The skin and subcutaneous tissues of the right groin was infiltrated with 2% lidocaine for local anesthesia. Arterial access was obtained in the right common femoral artery and 6 [place]an sheath was inserted. After infiltrating the skin and subcutaneous tissues of the left groin, arterial access was obtained in the left common femoral artery and 6 [place] sheath was inserted. Contrast injections were performed through this sheath in the left groin to assess the suitability of this vessel for using Impella external heart assist device. Subsequently, the access site was prepared for closure by using to Perclose suture devisces in a 'Preclose' technique. After incremental dilation of this vessel, a 13 [place] sheath was inserted. A 5 [place] multipurpose catheter was used to cross the aortic valve and a 0.018 inch guidewire was advanced to the left ventricle. Abiomed Impella 2.5 external heart assist device was advanced under fluoroscopic guidance over this wire and positioned appropriately across the aortic valve. The pump was turned on an increased incrementally to P8 level for optimal hemodynamic support.. The left main coronary artery was then engaged with a 6 [place] XB 3.0 guide catheter after initial attempts to engage it with XB 3.5 guide where unsuccessful. Angiography confirmed the previously described 70-80% stenosis of ostial left main coronary artery and 90-95% stenosis of the proximal to midsegment of the left anterior descending artery. The left main coronary artery stenosis was then crossed with a 0.014 inch [employer]-water guidewire into the left circumflex artery. This lesion was predilated with a 3.0 x 8 mm balloon following which this was successfully treated with a 4.0 x 8 mm Xience Alpine drug eluting stent. Follow-up angiography showed resolution of the stenosis to 0%. Subsequently, the lesion in the proximal to midsegment of the left anterior descending artery was crossed with the same guidewire, predilated with a 2.5 x 15 mm balloon following which this was successfully treated with a 2.5 x 15 mm Xience Alpine drug-eluting stent. Follow-up angiography showed resolution of the stenosis to 0% with PEGGY 3 distal flow. The Impella hemodynamic support catheter was turned down gradually to P2 level, pullback out of the ventricle, turned off and removed. Hemostasis in the right groin was achieved using Perclose suture device. Subsequently, the access site in the left common femoral artery was closed by completing the previously initiated P reclose technique. Patient tolerated the procedure well. There were no immediate complications. Conclusion Successful complex PCI/drug eluting stents placement to the left main coronary artery and the left anterior descending artery using Impella 2.5 percutaneous heart assist device for hemodynamic support. Recommendations 1. Aspirin 325 mg daily 2. Plavix 75 mg daily 3. Cardiovascular risk factor modification Vitals Vitals Vital Signs Date Time Temp Pulse Resp B/P (MAP) Pulse Ox O2 Delivery O2 Flow Rate FiO2 10/12/19 08:00 Room Air 10/12/19 07:00 84 102/48 (66) 96 10/12/19 07:00 97.8 18 97.8 Physical Exam General: Alert, Oriented X3, Cooperative, No acute distress Abdomen: Normal bowel sounds, Soft Extremities: No cyanosis Assessment and Plan Assessmemt and Plan Problems Medical Problems: (1) Confusion Status: Acute Goal 1 Position: * Standing Goal 2: Pt will be able to complete: * Simple meal prep task Goal 2 Equipment: * Front Wheeled Walker Goal 2 Required Assistance Level * Independent Goal 3: Pt will be able to complete: * toileting transfer Goal 3 Equipment * Front Wheeled Walker Goal 3 Required Assistance Level * Independent Goal 4 - Pt will be able to complete: * grooming/hygiene Goal 4 Equipment * Front Wheeled Walker Goal 4 Required Assistance Level * Independent Skilled interventions required to achieve goals * Activity sarah. training * ADL training/education * Balance training for ADL * Energy conservation * Functional mobility train * Home exercise prog * Precautions training * Safety education * Therapeutic Ex. * Transfer training for ADL Number of Days/Weeks for length of Stay, or Until Goals Met * 6x/week Discharge Recommendations * Home with Home Health * Home when goals met Discharge Recommendation Comments * Shower chair Comment Review of Relevant I have reviewed the following items rupinder (where applicable) has been applied. Labs Laboratory Tests Test 10/10/19 20:30 10/10/19 21:57 Urine Collection Type Void Urine Color Yellow Urine Clarity Clear Urine pH 7.5 (<5.0-8.0) Urine Specific [place] 1.015 (1.000-1.030) Urine Protein Negative mg/dL (NEG-TRACE) Urine Glucose (UA) Negative mg/dL (NEG) Urine Ketones (Stick) Negative mg/dL (NEG) Urine Blood Negative (NEG) Urine Nitrite Positive (NEG) Urine Bilirubin Negative (NEG) Urine Urobilinogen Dipstick 0.2 mg/dL (0.2 mg/dL) Urine Leukocyte Esterase Trace (NEG) Urine RBC Rare /HPF (0-2) Urine WBC 5-10 /HPF (0-4) Urine Squamous Epithelial Cells Occ /LPF Urine Bacteria Many /HPF (0-FEW) Urine Opiates Screen Neg (NEG) Urine Methadone Screen Neg (NEG) Urine Barbiturates Neg (NEG) Urine Phencyclidine Screen Neg (NEG) Urine Amphetamine/Methamphetamine Neg (NEG) Urine Benzodiazepines Screen Neg (NEG) Urine Cocaine Screen Neg (NEG) Urine Cannabinoids Screen Neg (NEG) Urine Ethyl Alcohol Neg (NEG) White Blood Count 6.5 x10^3/uL (4.0-11.0) Red Blood Count 4.36 x10^6/uL (3.50-5.40) Hemoglobin 13.1 g/dL (12.0-15.5) Hematocrit 39.2 % (36.0-47.0) Mean Corpuscular Volume 90 fL (79-100) Mean Corpuscular Hemoglobin 30 pg (25-35) Mean Corpuscular Hemoglobin Concent 33 g/dL (31-37) Red Cell Distribution Width 16.1 % (11.5-14.5) Platelet Count 237 x10^3/uL (140-400) Neutrophils (%) (Auto) 63 % (31-73) Lymphocytes (%) (Auto) 22 % (24-48) Monocytes (%) (Auto) 13 % (0-9) Eosinophils (%) (Auto) 2 % (0-3) Basophils (%) (Auto) 0 % (0-3) Neutrophils # (Auto) 4.1 x10^3/uL (1.8-7.7) Lymphocytes # (Auto) 1.4 x10^3/uL (1.0-4.8) Monocytes # (Auto) 0.8 x10^3/uL (0.0-1.1) Eosinophils # (Auto) 0.1 x10^3/uL (0.0-0.7) Basophils # (Auto) 0.0 x10^3/uL (0.0-0.2) Sodium Level 141 mmol/L (136-145) Potassium Level 4.1 mmol/L (3.5-5.1) Chloride Level 103 mmol/L (98-107) Carbon Dioxide Level 31 mmol/L (21-32) Anion Gap 7 (6-14) Blood Urea Nitrogen 19 mg/dL (7-20) Creatinine 1.1 mg/dL (0.6-1.0) Estimated GFR (Cockcroft-Gault) 46.9 BUN/Creatinine Ratio 17 (6-20) Glucose Level 100 mg/dL (70-99) Calcium Level 9.1 mg/dL (8.5-10.1) Total Bilirubin 0.4 mg/dL (0.2-1.0) Aspartate Amino Transf (AST/SGOT) 23 U/L (15-37) Alanine Aminotransferase (ALT/SGPT) 17 U/L (14-59) Alkaline Phosphatase 72 U/L (46-116) Troponin I Quantitative < 0.017 ng/mL (0.000-0.055) Total Protein 7.7 g/dL (6.4-8.2) Albumin 3.9 g/dL (3.4-5.0) Albumin/Globulin Ratio 1.0 (1.0-1.7) Medications Current Medications Ciprofloxacin/ Dextrose 100 ml @ 100 mls/hr 1X ONCE IV Last administered on 10/10/19at 23:46; Start 10/10/19 at 23:15; Stop 10/11/19 at 00:14; Status DC Ondansetron HCl (Zofran) 4 mg PRN Q8HRS PRN IV NAUSEA/VOMITING; Start 10/10/19 at 23:15; Stop 10/11/19 at 23:14; Status DC Ciprofloxacin (Cipro) 250 mg BID PO Last administered on 10/11/19at 09:16; Start 10/11/19 at 09:00; Stop 10/11/19 at 14:38; Status DC Bacitracin (Bacitracin Zinc Oint Pkt) 1 pkt 1X ONCE TP Last administered on 10/11/19at 00:32; Start 10/11/19 at 00:15; Stop 10/11/19 at 00:16; Status DC Aspirin (German Aspirin) 325 mg DAILY PO ; Start 10/11/19 at 11:00; Stop 10/11/19 at 11:44; Status DC Clopidogrel Bisulfate (Plavix) 75 mg DAILY PO ; Start 10/11/19 at 10:15; Stop 10/11/19 at 11:44; Status DC Diazepam (Valium) 2 mg PRN BID PRN PO ANXIETY; Start 10/11/19 at 10:15; Stop 10/11/19 at 11:44; Status DC Docusate Sodium (Colace) 100 mg PRN BID PRN PO CONSTIPATION; Start 10/11/19 at 10:15; Stop 10/11/19 at 14:01; Status DC Al Hydroxide/Mg Hydroxide (Mylanta Plus Xs) 355 ml PRN Q4HRS PRN PO DYSPEPSIA; Start 10/11/19 at 10:15; Stop 10/11/19 at 14:01; Status DC Nitroglycerin (Nitro-Bid Oint) 1 inch Q8HRS TD ; Start 10/11/19 at 14:00; Stop 10/11/19 at 11:44; Status DC Acetaminophen (Tylenol) 650 mg PRN Q6HRS PRN PO MILD PAIN 1-3; Start 10/11/19 at 10:45; Stop 10/11/19 at 14:01; Status DC Amlodipine Besylate (Norvasc) 2.5 mg DAILY PO ; Start 10/11/19 at 11:00; Stop 10/11/19 at 11:44; Status DC Multivitamins (Thera M Plus) 1 tab DAILY PO Last administered on 10/12/19at 08:07; Start 10/11/19 at 11:00 Atorvastatin Calcium (Lipitor) 80 mg QHS PO ; Start 10/11/19 at 21:00 Albuterol/ Ipratropium (Duoneb) 3 ml RTQID NEB Last administered on 10/11/19at 12:29; Start 10/11/19 at 12:00; Stop 10/11/19 at 14:02; Status DC Sodium Chloride (Normal Saline Flush) 3 ml QSHIFT PRN IV AFTER MEDS AND BLOOD DRAWS; Start 10/11/19 at 11:30 Ondansetron HCl (Zofran) 4 mg PRN Q4HRS PRN IV NAUSEA/VOMITING; Start 10/11/19 at 11:30 Acetaminophen (Tylenol) 650 mg PRN Q4HRS PRN PO TEMP OVER 100.4F OR MILD PAIN Last administered on 10/12/19at 01:36; Start 10/11/19 at 11:30 Al Hydroxide/Mg Hydroxide (Mylanta Plus Xs) 30 ml PRN DAILY PRN PO HEARTBURN / GAS; Start 10/11/19 at 11:30 Sodium Monofluorophosphate (Fleet Adult) 133 ml PRN DAILY PRN MS CONSTIPATION; Start 10/11/19 at 11:30 Docusate Sodium (Colace) 100 mg PRN BID PRN PO HARD STOOLS; Start 10/11/19 at 11:30 Albuterol/ Ipratropium (Duoneb) 3 ml Q4HRS NEB Last administered on 10/11/19at 20:13; Start 10/11/19 at 12:00; Stop 10/11/19 at 21:09; Status DC Guaifenesin (Robitussin) 200 mg PRN Q4HRS PRN PO COUGH Last administered on 10/12/19at 08:07; Start 10/11/19 at 11:30 Enoxaparin Sodium (Lovenox 30mg Syringe) 30 mg Q24H SQ Last administered on 10/11/19at 12:22; Start 10/11/19 at 12:00 Aspirin (Ecotrin) 81 mg DAILY PO Last administered on 10/12/19at 08:06; Start 10/11/19 at 12:00 Lactobacillus Rhamnosus (Culturelle) 1 cap BID PO Last administered on 10/12/19at 08:07; Start 10/11/19 at 21:00 Ciprofloxacin (Cipro) 250 mg DAILY PO Last administered on 10/12/19at 08:08; Start 10/12/19 at 09:00; Stop 10/14/19 at 09:01 Sodium Chloride 500 ml @ 500 mls/hr 1X ONCE IV Last administered on 10/11/19at 18:30; Start 10/11/19 at 16:45; Stop 10/11/19 at 17:44; Status DC Sodium Chloride 500 ml @ 500 mls/hr 1X ONCE IV Last administered on 10/11/19at 20:40; Start 10/11/19 at 17:45; Stop 10/11/19 at 18:44; Status DC Albuterol Sulfate (Ventolin Neb Soln) 2.5 mg PRN Q4HRS PRN NEB SHORTNESS OF BREATH; Start 10/11/19 at 21:15 Active Scripts Active Reported Aspirin Ec (Aspirin) 81 Mg Tablet. 1 Tab PO DAILY Crestor (Rosuvastatin Calcium) 20 Mg Tablet 20 Mg PO HS Acetaminophen 325 Mg/10.15 Ml Solution 325 Mg PO PRN Q6HRS PRN Multi-Day Vitamins (Multivitamin) 1 Each Tablet 1 Tab PO DAILY Vitals/I & O Vital Sign - Last 24 Hours 10/11/19 10/11/19 10/11/19 10/11/19 11:00 12:31 13:15 13:16 Temp 98.1 98.1 Pulse 62 82 78 Resp 20 B/P (MAP) 129/48 (75) 111/52 (71) 102/62 (75) Pulse Ox 97 96 O2 Delivery Room Air Room Air 10/11/19 10/11/19 10/11/19 10/11/19 13:16 15:00 15:54 19:00 Temp 97.9 97.8 97.9 97.8 Pulse 80 84 72 Resp 18 18 B/P (MAP) 93/51 (65) 138/60 (86) 167/89 (115) Pulse Ox 91 O2 Delivery Room Air Room Air 10/11/19 10/11/19 10/11/19 10/11/19 19:00 19:00 20:00 20:15 Pulse 83 85 B/P (MAP) 77/48 (58) 72/46 (55) Pulse Ox 99 O2 Delivery Room Air Room Air 10/11/19 10/11/19 10/11/19 10/12/19 23:02 23:07 23:07 03:00 Temp 98.2 98.0 98.2 98.0 Pulse 73 85 Resp 18 18 B/P (MAP) 133/46 (75) 84/48 (60) 95/53 (67) 106/46 (66) Pulse Ox 95 94 O2 Delivery Room Air Room Air 10/12/19 10/12/19 10/12/19 10/12/19 07:00 07:00 07:00 08:00 Temp 97.8 97.8 Pulse 65 86 84 Resp 18 B/P (MAP) 139/47 (77) 113/58 (76) 102/48 (66) Pulse Ox 95 95 96 O2 Delivery Room Air Room Air Room Air Room Air Intake and Output 10/11/19 10/11/19 10/12/19 15:00 23:00 07:00 Intake Total 240 ml 320 ml 440 ml Output Total 300 ml Balance 240 ml 320 ml 140 ml Justicifation of Admission Dx: Justifications for Admission: Justification of Admission Dx: Yes ANIBAL SHUKLA MD Oct 12, 2019 10:48
--- NOTE | 2019-10-12 11:46 | NUR ---
STEPH notified that pt interested in completing a POA for HC. STEPH met with pt and pt's family. Pt a/o and able to make needs known. Pt verbalized understanding that she makes her own healthcare decisions until she no longer can. Pt agreeable to completing POA for HC and listed her primary agent as her dtr Kristina Pollack of [facility] ([phone]) and her alternate agent as her granddaughter Cheryl Reyna of [facility] ([phone]). POA for HC notarized and pt provided with original document. Addendum: 10/12/19 at 1652 by DAKOTAH CHOI RN called to say pt would like to purchase a walker for $20. STEPH notified nursing meter readers supervisor who will follow up with pt.
[2019-10-12] MEDS: ENOXAPARIN 30 MG/0.3 ML SYRINGE. SQ SCH (13:11)
--- NOTE | 2019-10-12 13:50 | PDOC ---
RAMIRO HUI APRN 10/12/19 1350: CARDIO Progress Notes Date and Time Date of Service 10/12/19 Time of Evaluation 1310 Subjective Subjective: No Chest Pain, No shortness of breath, No Palpitations Vitals Vitals Vital Signs Date Time Temp Pulse Resp B/P (MAP) Pulse Ox O2 Delivery O2 Flow Rate FiO2 10/12/19 10:59 97.8 65 120/47 (71) 97 Room Air 97.8 10/12/19 07:00 18 Weight Weight [ ] Input and Output Intake and Output Intake and Output 10/12/19 07:00 Intake Total 1000 ml Output Total 300 ml Balance 700 ml Intake Oral 1000 ml Output Urine Total 300 ml # Voids 3 Microbiology Micro Microbiology 10/10/19 Urine Culture - Preliminary, Resulted Physical Exam HEENT: Neck Supple W Full Motion Chest: Symmetric LUNGS: Clear to Auscultation Heart: S1S2, RRR Abdomen: Soft N/T Extremities: No Edema Neurology: alert, oriented, follow commands Assessment Assessment 1. Syncope; most probably secondary to orthostatic hypotension contributing. S/p IV bolus 2. CAD; s/p PCI/CELENA to LMCA, LAD, and LCx 3. Hypertension 4. Hyperlipidemia 5. SSS s/p PPM ([employer]tr[employer]); Device check with normal function. No contributing arrhythmias 6. UTI 7. Carotid stenosis; US noted > 70% narrowing in the left external carotid artery Recommendations Repeat orthos. If remains orthostatic, will give additional IVF bolus Compression stockings. Encouraged oral hydration; poor oral hydration Ongoing antibiotic therapy as per IM Outpatient MPI as arranged Supportive care Justicifation of Admission Dx: Justifications for Admission: Justification of Admission Dx: Yes SAMIA CROW MD 10/12/19 1947: CARDIO Progress Notes Assessment Assessment Patient seen and examined. Agree with TALENT DEVELOPMENT COORDINATOR's assessment and plan. Syncope most prob secondary to hypovolemia SSS s/p PPM, stable with normal function CAD stable clinically Continue abx for UTI RAMIRO HUI APRN Oct 12, 2019 13:50 SAMIA CROW MD Oct 12, 2019 19:47
[2019-10-12] MEDS ORDERED: NICOTINE 21MG PATCH. TD PRN (15:00)
[2019-10-12] MEDS ORDERED: IV NORMAL SALINE 500ML BAG 500 ML IV ONE (15:00)
[2019-10-12] MEDS: ATORVASTATIN CALCIUM 40 MG TABLET. PO SCH (21:00)
[2019-10-13 03:00] VITALS: BP 163/61
[2019-10-13 07:00] VITALS: BP 136/61
[2019-10-13] MEDS: MULTIVITAMIN with MINERAL TABLET. PO SCH (08:08)
[2019-10-13] MEDS: LACTOBACILLUS RHAMNOSUS GG 1 CAPSULE. PO SCH (08:08)
[2019-10-13] MEDS: CIPROFLOXACIN HCL 250 MG TABLET. PO SCH (08:08)
[2019-10-13] MEDS: ASPIRIN ENTERIC COATED 81 MG TABLET.DR. PO SCH (08:08)
[2019-10-13] MEDS ORDERED: CIPR250T30 PO (10:22)
--- NOTE | 2019-10-13 10:24 | SNU/HH DC ---
DISCHARGE WITH HOME HEALTH DISCHARGE INFORMATION: Discharge Date: Oct 13, 2019 Final Diagnosis: UTI syncope tobacco use disorder CKD 4 weakness BMI 15 Problems Medical Problems: (1) Confusion Status: Acute Condition on Discharge: Stable CODE STATUS: Code Status: Full HOME HEALTH: Face to Face: I certify this patient is under my care and that I, or a nurse practitioner or physician's payroll human resources assistant working with me, had a face to face encounter that meets the physician face to face encounter requirements with this patient on 10/12 Medical Complications: Falls Mcc For: Assess/Skilled Observatio, Medication Management RN For Eval/Treatment: Yes Physical Therapy For: Evalulation/Treatment Occupational Therapy For: Evaluation/Treatment Pt Meets Homebound Status: Unsteady balance w/ amb,, Limited distance walking POST DISCHARGE ORDERS: Activity Instructions for Disc: Activity as tolerated, Avoid exertion Weight Bearing Status after Di: No restrictions Bathing Instructions: Shower-keep dressing dry DIET AFTER DISCHARGE: Regular FOLLOW-UP: Follow up with: cardiology, weeks TREATMENT/EQUIPMENT ORDERS: Adaptive Equipment Issued: None CERTIFICATION STATEMENT: Certification Statement: Certification Statement: Based on the above finding, I certify that this patient is confined to the home and needs intermittent fci care, physical therapy and/or speech therapy, or continues to need occupational therapy.~ This patient is under my care, and I have initiated the establishment of the plan of care.~ This patient will be followed by myself or a community physician who will periodically review the plan of care. Home Meds Active Scripts Ciprofloxacin Hcl (CIPRO) 250 Mg Tablet, 250 MG PO DAILY for UTI, #4 TAB Prov:WILLIAN COSTA MD 10/13/19 Reported Medications Aspirin (ASPIRIN EC) 81 Mg Tablet., 1 TAB PO DAILY for prevention, #30 TAB 3 Refills 10/11/19 Rosuvastatin Calcium (CRESTOR) 20 Mg Tablet, 20 MG PO HS for FOR CHOLESTEROL, #30 TAB 0 Refills 06/20/14 Acetaminophen (ACETAMINOPHEN) 325 Mg/10.15 Ml Solution, 325 MG PO PRN Q6HRS PRN for PAIN, #2 06/03/14 Multivitamin (MULTI-DAY VITAMINS) 1 Each Tablet, 1 TAB PO DAILY, #30 TAB 06/03/14 Discontinued Reported Medications Nitroglycerin (NITRO-BID) 1 Gm Oint...g., 1 GM TD Q8HRS 06/20/14 Amlodipine Besylate (AMLODIPINE BESYLATE) 2.5 Mg Tablet, 1 TAB PO DAILY, #90 TAB 3 Refills 06/20/14 Mag Hydrox/Al Hydrox/Simeth (MAALOX MAXIMUM STRENGTH SUSP) 355 Ml Oral.susp, 355 ML PO 06/03/14 Docusate Sodium (COLACE) 100 Mg Capsule, 100 MG PO PRN BID PRN for CONSTIPATION 06/03/14 Mineral Oil (MINERAL OIL) 473 Ml Oil, 473 ML PO 06/03/14 Tiotropium [place] (SPIRIVA) 18 Mcg Cap.w.dev, 2 INH IH DAILY, #1 INH 0 Refills 09/22/13 Diazepam (DIAZEPAM) 2 Mg Tablet, 2 MG PO BID PRN for prn, TAB 09/22/13 WILLIAN COSTA MD Oct 13, 2019 10:24
--- NOTE | 2019-10-13 10:33 | CARD ---
MR#: [id number] Date of Study: 10/13/2019 Ordering Physician: RAMIRO HUI, Referring Physician: RAMIRO HUI, Tech: Humaira Barfield [facility] APPROVED REPORT EXAM: Two-dimensional and M-mode echocardiogram with Doppler and color Doppler. Other Information Quality : Good Technically limited study due to rib interference; 78 lbs INDICATION Syncope Pacemaker 2D DIMENSIONS RVDd2.3 (2.9-3.5cm)Left Atrium(2D)3.1 (1.6-4.0cm) IVSd1.3 (0.7-1.1cm)Aortic Root(2D)2.8 (2.0-3.7cm) LVDd3.4 (3.9-5.9cm)LVOT Diameter1.9 (1.8-2.4cm) PWd1.3 (0.7-1.1cm)LVDs1.9 (2.5-4.0cm) FS (%) 30.0 %SV36.3 ml LVEF(%)60.0 (>50%) Aortic Valve AoV Peak Henry.234.5cm/sAoV VTI56.7cm AO Peak GR.22.0mmHgLVOT Peak Henry.99.1cm/s AO Mean GR.11mmHgAVA (VMAX)1.18cm2 VARUN (VTI)1.91jh8WM P 1/2 Band312qn Mitral Valve MV E Mdmqghvy11.7cm/sMV DECEL NTDE126cz MV A Bkjisntx076.5cm/sE/A Ratio0.8 Tricuspid Valve TR P. Lwzzyteu160by/sRAP BOKZXCZO2qqLm TR Peak Gr.88vnNoVPGS41hkRm Pulmonary Vein S1 Kpekebds31.3cm/sD2 Ttrrrdqi03.4cm/s LEFT VENTRICLE The left ventricle is normal size. There is mild concentric left ventricular hypertrophy. The left ve ntricular systolic function is normal and the ejection fraction is within normal range. The Ejection Fraction is 55-60%. There is normal LV segmental wall motion. Transmitral Doppler flow pattern is Gra de I-abnormal relaxation pattern. RIGHT VENTRICLE The right ventricle is normal size. The right ventricular systolic function is normal. There is a pac emaker lead in the right ventricle. ATRIA The left atrium size is normal. The right atrium size is normal. A pacemaker is seen in the right atr ium consistent with history. The interatrial septum is intact with no evidence for an atrial septal d efect or patent foramen ovale as noted on 2-D or Doppler imaging. AORTIC VALVE The aortic valve is calcified and displays decreased opening. Doppler and Color Flow revealed moderat e eccentric aortic regurgitation. Calculated aortic valve area is 1.4 cm2 with maximum pressure gradi ent of 22 mmHg and mean pressure gradient of 12 mmHg. Doppler and color-flow analysis revealed mild a ortic stenosis. MITRAL VALVE The mitral valve is mildly thickened but opens well. Posterior mitral annular calcification is modera te. There is no evidence of mitral valve prolapse. There is no mitral valve stenosis. Doppler and Col or-flow revealed mild mitral regurgitation. TRICUSPID VALVE The tricuspid valve is normal in structure and function. Doppler and Color Flow revealed mild tricusp id regurgitation. The PA pressure was estimated at 29 mmHg. There is no tricuspid valve stenosis. PULMONIC VALVE The pulmonary valve is normal in structure and function. Doppler and Color Flow revealed trace pulmon ic valvular regurgitation. There is no pulmonic valvular stenosis. GREAT VESSELS The aortic root is normal in size. The ascending aorta is not well seen. The IVC is normal in size an d collapses >50% with inspiration. PERICARDIAL EFFUSION There is no evidence of significant pericardial effusion. Critical Notification Critical Value: No <Conclusion> The left ventricular systolic function is normal and the ejection fraction is within normal range. Th e Ejection Fraction is 55-60%. There is normal LV segmental wall motion. There is a pacemaker lead in the right ventricle. Doppler and Color Flow revealed moderate eccentric aortic regurgitation. Calculated aortic valve area is 1.4 cm2 with maximum pressure gradient of 22 mmHg and mean pressure g radient of 12 mmHg. Doppler and color-flow analysis revealed mild aortic stenosis. Signed by : Brenton Whipple, Electronically Approved : 10/13/2019 10:32:49
--- NOTE | 2019-10-13 10:35 | PDOC3 ---
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 Orthostatics positive with significant 40 mmHg drop in SBP. try 500 cc of normal saline bolus. CAD status clinically stable. Recent pacemaker check showed normal function. Confusion orthostasis, WITH HYPOTENSION ACUTE METABOLIC ENCEPHALOPATHY HX CAROTID STENOSIS, NONCRITICAL CAD tobacco abuse disorder Problems Medical Problems: (1) Confusion Status: Acute Brief Hospital Course Allergies Allergies Coded Allergies Type Severity Reaction Last Updated Verified No Known Drug Allergies 10/11/19 No Vital Signs Vital Signs Date Time Temp Pulse Resp B/P (MAP) Pulse Ox O2 Delivery O2 Flow Rate FiO2 10/13/19 07:00 97.4 91 17 136/61 (86) 97 Room Air 97.4 Brief Hospital Course Ms. Perez is a 88 old female, admit with weaknwess, falls, sycnope, had UTI, was dehydrated, felt much better at DC Discharge Information Condition at Discharge: Improved Follow Up: Weeks Disposition/Orders: D/C to Home w/ HH Scheduled Aspirin (Aspirin Ec) 81 Mg Tablet., 1 TAB PO DAILY for prevention, #30 Ref 3 (Reported) Entered as Reported by: EARLINE CHEEMA on 10/11/19 1144 Last Taken: Unknown Dose on Unknown Date & Time Last Action: Continued on 10/11/19 1145 by EARLINE CHEEMA Ciprofloxacin Hcl (Cipro) 250 Mg Tablet, 250 MG PO DAILY for UTI, #4 Prescribed by: WILLIAN COSTA on 10/13/19 1022 Multivitamin (Multi-Day Vitamins) 1 Each Tablet, 1 TAB PO DAILY, #30 (Reported) Entered as Reported by: RAMIRO THOMAS on 06/03/14 0731 Last Taken: Unknown Dose on 10/10/19 Last Action: Converted on 10/11/19 1018 by ANIBAL SHUKLA MD Rosuvastatin Calcium (Crestor) 20 Mg Tablet, 20 MG PO HS for FOR CHOLESTEROL, #30 Ref 0 (Reported) Entered as Reported by: MAGNUS CLEMONS on 06/20/14 0728 Last Taken: Unknown Dose on 10/09/19 Last Action: Converted on 10/11/19 1018 by ANIBAL SHUKLA MD Scheduled PRN Acetaminophen (Acetaminophen) 325 Mg/10.15 Ml Solution, 325 MG PO PRN Q6HRS PRN for PAIN, #2 (Reported) Entered as Reported by: RAMIRO THOMAS on 06/03/14730 Last Taken: Unknown Dose on Unknown Date & Time Last Action: Converted on 10/11/19 1018 by ANIBAL SHUKLA MD Discontinued Medications Amlodipine Besylate (Amlodipine Besylate) 2.5 Mg Tablet, 1 TAB PO DAILY, #90 Ref 3 (Reported) Entered as Reported by: MAGNUS CLEMONS on 06/20/14727 Last Taken: Unknown Dose on 10/10/19 Last Action: Discontinued on 10/11/191140 by EARLINE CHEEMA Diazepam (Diazepam) 2 Mg Tablet, 2 MG PO BID PRN for prn, (Reported) Entered as Reported by: GLADYS LEE on 09/22/13825 Last Taken: Unknown Dose on 10/09/19 Last Action: Discontinued on 10/11/191140 by EARLINE CHEEMA Docusate Sodium (Colace) 100 Mg Capsule, 100 MG PO PRN BID PRN for CONSTIPATION, (Reported) Entered as Reported by: RAMIRO THOMAS on 06/03/14730 Last Taken: Unknown Dose on Unknown Date & Time Last Action: Discontinued on 10/11/191140 by EARLINE CHEEMA Mag Hydrox/Al Hydrox/Simeth (Maalox Maximum Strength Susp) 355 Ml Oral.susp, 355 ML PO, (Reported) Entered as Reported by: RAMIRO THOMAS on 06/03/14730 Last Taken: Unknown Dose on Unknown Date & Time Last Action: Discontinued on 10/11/191140 by EARLINE CHEEMA Mineral Oil (Mineral Oil) 473 Ml Oil, 473 ML PO, (Reported) Entered as Reported by: RAMIRO THOMAS on 06/03/14730 Last Taken: Unknown Dose on Unknown Date & Time Last Action: Discontinued on 10/11/191140 by EARLINE CHEEMA Nitroglycerin (Nitro-Bid) 1 Gm Oint...g., 1 GM TD Q8HRS, (Reported) Entered as Reported by: MAGNUS CLEMONS on 06/20/14727 Last Taken: Unknown Dose on Unknown Date & Time Last Action: Discontinued on 10/11/191140 by EARLINE CHEEMA Tiotropium [place] (Spiriva) 18 Mcg Cap.w.dev, 2 INH IH DAILY, #1 Ref 0 (Reported) Entered as Reported by: GLADYS LEE on 09/22/13825 Last Taken: Unknown Dose on Unknown Date & Time Last Action: Discontinued on 10/11/19 1141 by EARLINE CHEEMA Patient Instructions Patient Instructions > 30min face to face Justicifation of Admission Dx: Justifications for Admission: Justification of Admission Dx: Yes WILLIAN COSTA MD Oct 13, 2019 10:35
[2019-10-13 11:00] VITALS: BP 137/57
[2019-10-13] MEDS: ENOXAPARIN 30 MG/0.3 ML SYRINGE. SQ SCH (11:40)
--- NOTE | 2019-10-13 11:51 | PDOC ---
EZRAMIRO FISHMAN EDNA 10/13/19 1151: CARDIO Progress Notes Date and Time Date of Service 10/13/19 Time of Evaluation 1140 Subjective Subjective: No Chest Pain, No shortness of breath, No Palpitations Vitals Vitals Vital Signs Date Time Temp Pulse Resp B/P (MAP) Pulse Ox O2 Delivery O2 Flow Rate FiO2 10/13/19 11:00 97.7 83 14 137/57 (83) 95 Room Air 97.7 Weight Weight [ ] Input and Output Intake and Output Intake and Output 10/13/19 07:00 Intake Total 1550 ml Balance 1550 ml Intake Oral 1550 ml # Voids 9 Microbiology Micro Microbiology 10/10/19 Urine Culture - Final, Complete 10/10/19 Antimicrobic Susceptibility - Final, Complete Physical Exam HEENT: Neck Supple W Full Motion Chest: Symmetric LUNGS: Clear to Auscultation Heart: S1S2, RRR Abdomen: Soft N/T Extremities: No Edema Neurology: alert, oriented, follow commands Assessment Assessment 1. Syncope; most probably secondary to hypovolemia, orthostatic hypotension. S/p IV bolus. Echo with normal LV systolic function. Moderate AR and mild noted 2. CAD; s/p PCI/CELENA to LMCA, LAD, and LCx 3. Hypertension; controlled 4. Hyperlipidemia; statin 5. SSS s/p PPM ([employer]); Device check with normal function. No contributing arrhythmias 6. UTI; antibiotics as per IM 7. Carotid stenosis; US noted > 70% narrowing in the left external carotid artery Recommendations Encouraged oral hydration Outpatient MPI as arranged Follow up in our office with Dr. Mcmullen as scheduled Okay to discharge with HH from a CV standpoint Supportive care Justicifation of Admission Dx: Justifications for Admission: Justification of Admission Dx: Yes SAMIA MCMULLEN MD 10/13/19 2100: CARDIO Progress Notes Assessment Assessment Patient seen and examined. Agree with STUNT DRIVER's assessment and plan. Syncope most prob secondary to hypovolemia SSS s/p PPM, stable with normal function CAD stable clinically 2D echo showed normal LVF Continue abx for UTI F/u as scheduled RAMIRO HUI APRN Oct 13, 2019 11:51 SAMIA MCMULLEN MD Oct 13, 2019 21:00
--- NOTE | 2019-10-13 13:27 | NUR ---
Discharge Note: PT DISCHARGED HOME WITH [facility]. PT LEFT FACILITY VIA PRIVATE VEHICLE AT 1222 WITH [facility] AND DAUGHTER. PT STABLE AND ALERT UPON DISHCARGE. PT PIV REMOVED FROM R FA WITHOUT COMPLICATIONS, BANDAGE APPLIED. WOUND PHOTOGRAPHS TAKEN OF R ELBOW, L ELBOW, AND R SCALP AREA, DRESSING'S REAPPLIED PER ORDER. PT EDUCATED ABOUT DISCHARGE INSTRUCTIONS, DISCHARG MEDICATIONS, AND FOLLOW-UP CARE. PT VOICED NO CONCERNS AT THIS TIME. PT LEFT WITH ALL PERSONAL BELONGINGS. HANNAH MÉNDEZ Discharge instructions and discharge home medications reviewed with Patient and a copy given. All questions have been answered and understanding verbalized.
== END 2019-10-13 12:22 | disposition home health service (06) | DRG 640 ==
LOC: ER 20:03 → 5 NORTH 23:36
PROVIDERS: ADMIT Family Medicine; ATTEND Family Medicine
DX: E86.1 Hypovolemia (principal); G93.41 Metabolic encephalopathy; N17.0 Acute kidney failure with tubular necrosis; N39.0 Urinary tract infection, site not specified; I13.0 Hypertensive heart and chronic kidney disease with heart failure and stage 1 through stage 4 chronic kidney disease, or unspecified chronic kidney disease; N18.4 Chronic kidney disease, stage 4 (severe); I95.1 Orthostatic hypotension; E78.00 Pure hypercholesterolemia, unspecified; E78.5 Hyperlipidemia, unspecified; F17.210 Nicotine dependence, cigarettes, uncomplicated; I25.10 Atherosclerotic heart disease of native coronary artery without angina pectoris; I49.5 Sick sinus syndrome; I65.29 Occlusion and stenosis of unspecified carotid artery; Z82.49 Family history of ischemic heart disease and other diseases of the circulatory system; Z82.5 Family history of asthma and other chronic lower respiratory diseases; Z95.0 Presence of cardiac pacemaker; Z98.61 Coronary angioplasty status; M19.90 Unspecified osteoarthritis, unspecified site; E05.90 Thyrotoxicosis, unspecified without thyrotoxic crisis or storm; I25.2 Old myocardial infarction; Z88.1 Allergy status to other antibiotic agents; Z88.8 Allergy status to other drugs, medicaments and biological substances
CPT/HCPCS: 36415; 70450; 71045; 80053; 80307; 81001; 84484; 85025; 87086; 93005; 93306; 93880; 93925; 94640; 94760; 96365; 99285; J0744; J1650; J7040; 97110-GP; 97116-GP; 97530-GP; 97535-GO; G0378

== ENCOUNTER → 2019-10-18 | Outpatient (CLI) | payer MEDICARE, BC ==
[2019-10-13 11:00] VITALS: BP 137/57
[~2019-10-18] MED LIST changes: +ASPI-886 PO; +CIPR250T30 PO; +REGADENOSON 0.4 MG/5 ML DISP.SYRIN. IV ONE
--- NOTE | 2019-10-18 16:54 | RAD ---
MR#: [id number] Date of Study: 10/18/2019 Ordering Physician: SAMIA CROW, Referring Physician: DASIA WILLIS Tech: ESTEFANY Hannon, DAYNE (Micah) (N) APPROVED REPORT Test Type: Pharmacological Stress Nurse/Tech: Rosie Burnett RN Test Indications: CAD Cardiac History: pacemaker,smoker Medications: See Electronic Medical Record Medical History: See Electronic Medical Record Resting ECG: SR Resting Heart Rate: 74 bpm Resting Blood Pressure: 145/68mmHg Pretest Chest Pain: No chest pain Nurse/Tech Notes S1,S2 and lungs diminished throughout. Consent: The procedure was explained to the patient in lay terms. Informed consent was witnessed. Brandon eout was entered into [employer]. History and Stress Test performed by ESTEFANY Hannon, DAYNE (R) (N) Pharm. Details Pharmacologic stress testing was performed using 0.4mg per 5ml of regadenoson given intravenously ove r 7-10 seconds. Stress Symptoms Nausea,Dizziness (patient became sick to her stomach and hypotensive) POST EXERCISE Reason for Termination: Infusion complete Target HR: Yes Max HR: 157 bpm 140% of Maximum Predicted HR: 112 bpm Max Blood Pressure: 91/43mmHg Blood Pressure response to exercise: Abnormal blood pressure response during stress. Heart Rate response to exercise: Abnormal Chest Pain: No. Arrhythmia: No. ST Change: No. INTERPRETATION Stress EKG Conclusion: The resting EKG shows a sinus rhythm with nonspecific ST-T wave changes. The stress EKG shows no significant changes from baseline. No EKG evidence of stress-induced ischemia. Imaging Protocol IMAGE PROTOCOL: Rest Tc-99m/stress Tc-99m 1 day Rest: Stress: Viability: Radiopharm.Tc99m OrddtdtjxKa19i Sestamibi Aqdt50oHm 31mCi Img Date 10/18/2019 10/18/2019 Inj-Img [id number]. 60min. Rest Admin Site:IV - Right AntecubitalAdministrator:RT Shannon (R)(N) Stress Admin Site: IV - Right AntecubitalAdministrator: Rosalio Schuster, RT (R)(N) STRESS DATA End Diast. Vol.50.0mlAv. Heart Rate64.0bpm End Syst. Vol.12.0mlCO Index BSA0.0L/min Myocardial Mass94.0gEject. Vhlseafp67.0% Stress Rates Pk. Fill Rate3.85EDV/secLVtime Pk. Fill 276.01msec Pk. Empty Rate3.43ESV/secLVtime Pk. Kbwrv387.69msec 3 Pk. Fill0.38EDV/sec Stress Scores Regional WT0.00Summed WT0.00 Regional WM0.00Summed WM1.00 LV Perfusion The stress scans showed no significant defects. The rest scans showed no significant defects. Nuclear imaging shows no reversible ischemia or infarct. Wall Motion LV systolic function is normal with an EF of > 70%. LV Perf. Quant 17 Seg. SSS0.00 17 Seg. SRS1.00 17 Seg. SDS0.00 Stress Defect Extent (% LAD)0.00Rest Defect Extent (% LAD)0.00Rev. Defect Extent (% LAD)0.00 Stress Defect Extent (% LCX) 0.00Rest Defect Extent (% LCX)0.00Rev. Defect Extent (% LCX)0.00 Stress Defect Extent (% RCA)0.00Rest Defect Extent (% RCA)0.00Rev. Defect Extent (% RCA)0.00 Stress Defect Extent (% KADY)0.00Rest Defect Extent (% KADY)0.00Rev. Defect Extent (% KADY)0.00 Conclusion 1. No EKG evidence of stress-induced ischemia. 2. Nuclear imaging shows no reversible ischemia or infarct 3. Normal left ventricular systolic function with an ejection fraction of greater than 70%. 4. Moderately low risk Lexiscan nuclear stress test with no reversible ischemia and a normal ejection fraction. Signed by : Terrell Alejo MD Electronically Approved : 10/18/2019 16:53:49
== END | disposition home or self-care (01) ==
LOC: NM 10:26
PROVIDERS: ATTEND Internal Medicine Cardiovascular Disease
DX: I25.10 Atherosclerotic heart disease of native coronary artery without angina pectoris (principal); F17.200 Nicotine dependence, unspecified, uncomplicated; Z95.0 Presence of cardiac pacemaker
CPT/HCPCS: 78452; 93017; A9500; J2785